=== PATIENT | male | born 1965 | race Caucasian/White ===

== ENCOUNTER 2021-01-15 15:26 | Outpatient (CLI) | payer BC ==
[~2021-01-15 15:26] MED LIST: ACET325T14 PO; ACET500T64 PO; ALBU8.5H8 INH; SUMA25TA3 PO
== END 2021-01-15 23:59 | disposition home or self-care (01) ==
LOC: CVU 15:26
PROVIDERS: ATTEND Internal Medicine Cardiovascular Disease
DX: I37.1 Nonrheumatic pulmonary valve insufficiency (principal); I45.10 Unspecified right bundle-branch block
CPT/HCPCS: 93306; 93356